=== PATIENT | female | born 1990 | race Caucasian/White ===

== ENCOUNTER 2016-08-20 13:31 | Emergency (ER) | payer OTHER ==
[2016-08-20 13:36] VITALS: TEMP 97.6
[2016-08-20] MEDS ORDERED: ACETAMINOPHEN TAB 500 MG TAB PO STA (13:43)
[2016-08-20] MEDS ORDERED: SODIUM CHLORIDE 0.9% 1,000 ML IV STA (13:43)
--- NOTE | 2016-08-20 13:45 | ED ---
Abdominal Pain HPI - General Chief Complaint: Abdominal Pain Stated Complaint: Poss / Abd Pain Time Seen by Provider: 08/20/16 13:37 Source: patient, RN notes reviewed Mode of arrival: ambulatory Limitations: no limitations - History of Present Illness Initial Comments: 26-year-old female presents to the emergency department with a chief complaint of concern for . Patient states that she has an IUD. Patient states that she took a positive test at home so she was concerned. Patient does not know how far along she possibly has. Patient states she has had some mild abdominal cramping. Patient denies any fever chills with this. Patient is admitted we'll go to her nose. Patient was concerned due to the continued abdominal pain and a test so she thought that she should be evaluated. Patient denies any recent fever, chills, shortness of breath, chest pain, back pain, nausea vomiting, numbness or tingling, dysuria or hematuria, constipation or diarrhea, headaches or visual changes, or any other current symptoms. - Related Data Home Medications Medication Instructions Recorded Confirmed Ascorbic Acid [Vitamin C] 500 mg PO DAILY 08/20/16 08/20/16 Cholecalciferol [Vitamin D3] 1,000 unit PO DAILY 08/20/16 08/20/16 Cranberry Fruit Concentrate 450 mg PO DAILY 08/20/16 08/20/16 [Cranberry] Cyanocobalamin (Vitamin B-12) 1,000 mcg PO DAILY 08/20/16 08/20/16 [Vitamin B-12] Previous Rx's Medication Instructions Recorded Pnv with Ca,No.72/Iron/FA 1 each PO DAILY #30 tablet 08/20/16 [ Plus Tablet] Allergies Allergy/AdvReac Type Severity Reaction Status Date / Time No Known Allergies Allergy Verified 08/20/16 13:44 Review of Systems ROS Statement: Those systems with pertinent positive or pertinent negative responses have been documented in the HPI. ROS Other: All systems not noted in ROS Statement are negative. Past Medical History Past Medical History: No Reported History History of Any Multi-Drug Resistant Organisms: None Reported Past Surgical History: Section Past Anesthesia/Blood Transfusion Reactions: No Reported Reaction Past Psychological History: No Psychological Hx Reported Smoking Status: Never smoker Past Alcohol Use History: None Reported Past Drug Use History: None Reported - Past Family History Father Family Medical History: Diabetes Mellitus General Exam Limitations: no limitations General appearance: alert, in no apparent distress Head exam: Present: atraumatic, normocephalic, normal inspection Eye exam: Present: normal appearance, PERRL, EOMI. Absent: scleral icterus, conjunctival injection, periorbital swelling ENT exam: Present: normal exam, mucous membranes moist Neck exam: Present: normal inspection. Absent: tenderness, meningismus, lymphadenopathy Respiratory exam: Present: normal lung sounds bilaterally. Absent: respiratory distress, wheezes, rales, rhonchi, stridor Cardiovascular Exam: Present: regular rate, normal rhythm, normal heart sounds. Absent: systolic murmur, diastolic murmur, rubs, gallop, clicks GI/Abdominal exam: Present: soft, normal bowel sounds. Absent: distended, tenderness, guarding, rebound, rigid External exam: Present: normal external exam Speculum exam: Present: normal speculum exam By manual exam: Present: normal by manual exam Neurological exam: Present: alert, oriented X3 Psychiatric exam: Present: normal affect, normal mood Skin exam: Present: warm, dry, intact, normal color. Absent: rash Course Vital Signs 08/20/16 08/20/16 13:33 15:21 Temperature 97.6 F Pulse Rate 94 93 Respiratory 18 16 Rate Blood Pressure 129/62 121/51 O2 Sat by Pulse 97 100 Oximetry Medical Decision Making - Medical Decision Making 26-year-old female presents emergency Department chief complaint of abdominal pain with concern for . This time patient's ultrasound does show a 9 week . There is concern for possible subchorionic bleed. At this time patient is O+. Patient's pelvic exam does not show an IUP D either just the ultrasound. This time we discussed discharge and follow-up with [facility]. We discussed return parameters and all patient's questions. She stated that she understood and is in agreement with plan. Patient will be discharged. - Lab Data Result diagrams: 08/20/16 13:50 08/20/16 13:50 Lab Results 08/20/16 08/20/16 08/20/16 Range/Units 13:45 13:45 13:50 WBC (3.8-10.6) k/uL RBC (3.80-5.40) m/uL Hgb (11.4-16.0) gm/dL Hct (34.0-46.0) % MCV (80.0-100.0) fL MCH (25.0-35.0) pg MCHC (31.0-37.0) g/dL RDW (11.5-15.5) % Plt Count (150-450) k/uL Neutrophils % % Lymphocytes % % Monocytes % % Eosinophils % % Basophils % % Neutrophils # (1.3-7.7) k/uL Lymphocytes # (1.0-4.8) k/uL Monocytes # (0-1.0) k/uL Eosinophils # (0-0.7) k/uL Basophils # (0-0.2) k/uL Sodium (137-145) mmol/L Potassium (3.5-5.1) mmol/L Chloride (98-107) mmol/L Carbon Dioxide (22-30) mmol/L Anion Gap mmol/L BUN (7-17) mg/dL Creatinine (0.52-1.04) mg/dL Est GFR (MDRD) Af Amer (>60 ml/min/1.73 sqM) Est GFR (MDRD) Non-Af (>60 ml/min/1.73 sqM) Glucose (74-99) mg/dL Calcium (8.4-10.2) mg/dL Total Bilirubin (0.2-1.3) mg/dL AST (14-36) U/L ALT (9-52) U/L Alkaline Phosphatase (38-126) U/L Total Protein (6.3-8.2) g/dL Albumin (3.5-5.0) g/dL HCG, Quant mIU/mL Urine Color Yellow Urine Appearance Cloudy H (Clear) Urine pH 7.0 (5.0-8.0) Ur Specific Avenue 1.014 (1.001-1.035) Urine Protein Negative (Negative) Urine Glucose (UA) Negative (Negative) Urine Ketones Negative (Negative) Urine Blood Negative (Negative) Urine Nitrite Negative (Negative) Urine Bilirubin Negative (Negative) Urine Urobilinogen <2.0 (<2.0) mg/dL Ur Leukocyte Esterase Negative (Negative) Urine RBC 1 (0-5) /hpf Urine WBC 2 (0-5) /hpf Ur Squamous Epith Cells 9 H (0-4) /hpf Amorphous Sediment Moderate H (None) /hpf Urine Bacteria Rare H (None) /hpf Urine Mucus Rare H (None) /hpf Urine HCG, Qual Detected (Not Detectd) Blood Type O Positive Blood Type Recheck No 08/20/16 08/20/16 Range/Units 13:50 13:50 WBC 8.6 (3.8-10.6) k/uL RBC 4.32 (3.80-5.40) m/uL Hgb 12.7 (11.4-16.0) gm/dL Hct 37.0 (34.0-46.0) % MCV 85.7 (80.0-100.0) fL MCH 29.4 (25.0-35.0) pg MCHC 34.3 (31.0-37.0) g/dL RDW 12.8 (11.5-15.5) % Plt Count 249 (150-450) k/uL Neutrophils % 68 % Lymphocytes % 25 % Monocytes % 4 % Eosinophils % 1 % Basophils % 0 % Neutrophils # 5.8 (1.3-7.7) k/uL Lymphocytes # 2.1 (1.0-4.8) k/uL Monocytes # 0.3 (0-1.0) k/uL Eosinophils # 0.0 (0-0.7) k/uL Basophils # 0.0 (0-0.2) k/uL Sodium 137 (137-145) mmol/L Potassium 4.0 (3.5-5.1) mmol/L Chloride 103 (98-107) mmol/L Carbon Dioxide 24 (22-30) mmol/L Anion Gap 10 mmol/L BUN 12 (7-17) mg/dL Creatinine 0.47 L (0.52-1.04) mg/dL Est GFR (MDRD) Af Amer >60 (>60 ml/min/1.73 sqM) Est GFR (MDRD) Non-Af >60 (>60 ml/min/1.73 sqM) Glucose 97 (74-99) mg/dL Calcium 9.3 (8.4-10.2) mg/dL Total Bilirubin 0.5 (0.2-1.3) mg/dL AST 19 (14-36) U/L ALT 23 (9-52) U/L Alkaline Phosphatase 74 (38-126) U/L Total Protein 7.2 (6.3-8.2) g/dL Albumin 4.1 (3.5-5.0) g/dL HCG, Quant 16485.0 mIU/mL Urine Color Urine Appearance (Clear) Urine pH (5.0-8.0) Ur Specific Avenue (1.001-1.035) Urine Protein (Negative) Urine Glucose (UA) (Negative) Urine Ketones (Negative) Urine Blood (Negative) Urine Nitrite (Negative) Urine Bilirubin (Negative) Urine Urobilinogen (<2.0) mg/dL Ur Leukocyte Esterase (Negative) Urine RBC (0-5) /hpf Urine WBC (0-5) /hpf Ur Squamous Epith Cells (0-4) /hpf Amorphous Sediment (None) /hpf Urine Bacteria (None) /hpf Urine Mucus (None) /hpf Urine HCG, Qual (Not Detectd) Blood Type Blood Type Recheck Disposition Clinical Impression: Disposition: HOME SELF-CARE Condition: Stable Instructions: (ED) Additional Instructions: Please use medication as discussed. Please follow up with family doctor if symptoms have not improved over the next two days. Please return to the emergency room if your symptoms increase or worsen or for any other concerns. Prescriptions: Pnv with Ca,No.72/Iron/FA [ Plus Tablet] 1 each PO DAILY #30 tablet Referrals: Anu Hooks DO [Primary Care Provider] - 1-2 days Time of Disposition: 15:38
[2016-08-20 14:16] LABS: Basophils % (A) 0 %; CH 29.9; CHCM 34.9; Eosinophils % (A) 1 %; HGB 12.7 gm/dL (11.4-16.0); Luc # (Auto) 0.18; Luc % (Auto) 2; Lymphocytes # (A) 2.1 k/uL (1.0-4.8); Lymphocytes % (A) 25 %; MCH 29.4 pg (25.0-35.0); MCHC 34.3 g/dL (31.0-37.0); MCV 85.7 fL (80.0-100.0); Mean Platelet Volume 6.8; Monocytes # (A) 0.3 k/uL (0-1.0); Monocytes % (A) 4 %; Neutrophils # (A) 5.8 k/uL (1.3-7.7); Neutrophils % (A) 68 %; RBC 4.32 m/uL (3.80-5.40); RDW 12.8 % (11.5-15.5); WBC 8.6 k/uL (3.8-10.6); WBC (Perox) 8.94
[2016-08-20 14:16] LABS: Amorphous Sediment,Urine Moderate /hpf; Appearance,Urine Cloudy (Clear); Bacteria,Urine Rare /hpf; Bilirubin,Urine Negative (Negative); Glucose,Urine (UA) Negative (Negative); Ketones,Urine Negative (Negative); Leukocyte Esterase,Urine Negative (Negative); Mucus,Urine Rare /hpf; Nitrite,Urine Negative (Negative); Particle Count 9168; Protein,Urine Negative (Negative); RBC,Urine 1 /hpf (0-5); Specific Gravity,Urine 1.014 (1.001-1.035); Squamous Epithelial Cell,Urine 9 /hpf (0-4); UA Billing (MACRO vs. MICRO) MICRO; Urobilinogen,Urine <2.0 mg/dL (<2.0); WBC,Urine 2 /hpf (0-5)
[2016-08-20 14:25] LABS: ALT 23 U/L (9-52); AST 19 U/L (14-36); Alkaline Phosphatase 74 U/L (38-126); Anion Gap 10 mmol/L; Blood Urea Nitrogen 12 mg/dL (7-17); Calcium 9.3 mg/dL (8.4-10.2); Carbon Dioxide 24 mmol/L (22-30); Chloride 103 mmol/L (98-107); Glucose 97 mg/dL (74-99); Non-African American GFR(MDRD) >60 (>60 ml/min/1.73 sqM); Sodium 137 mmol/L (137-145); Total Bilirubin 0.5 mg/dL (0.2-1.3); Total Protein 7.2 g/dL (6.3-8.2)
--- NOTE | 2016-08-20 15:10 | US ---
EXAMINATION TYPE: US OB <= 14 wk fetus DATE OF EXAM: 08/20/2016 2:54 PM COMPARISON: NONE CLINICAL HISTORY: 26-year-old female Pain. spotting with Date of LMP: unknown Beta HcG (if available): not available EXAM PERFORMED: Multiple transabdominal sonographic images of the pelvis were obtained. FINDINGS: EXAM MEASUREMENTS: GESTATIONAL AGE / DATING Physician Established: not established Dates by LMP: unknown Dates by First Scan: this is first scan Dates by Current Scan for: (9 weeks/3 days) EDC: 03/22/2017 MATERNAL ANATOMY Uterus: 14.6 x 5.6 x 11.1 cm Right Ovary: 3.9 x 2.5 x 2.9cm Left Ovary: 4.0 x 1.4 x 2.4 Post CDS / Adnexa: wnl Presence of free fluid: none Presence of subchorionic bleed: Along the left inferior margin of the gestational sac measuring 4.2 x 0.6 x 2.6 cm GESTATION / SURVEY CRL: 2.7cm (9 weeks/3 days) Yolk Sac (normal less than 6mm): 4.6 mm Heart Rate: 169 bpm Rhythm: Normal IUP: Viable IUP IMPRESSION: 1. Single live intrauterine with gestational age of 9 weeks 3 days by crown-rump length. 2. Moderate-sized left-sided and inferior perigestational bleed. Follow-up can be performed.
[2016-08-20 15:50] VITALS: BP 125/71; PULSE 85; RESP 18
== END 2016-08-20 15:50 | disposition home or self-care (01) ==
LOC: EC 13:31
DX: O26.891 Other specified pregnancy related conditions, first trimester (principal); R10.9 Unspecified abdominal pain; Z3A.09 9 weeks gestation of pregnancy
CPT/HCPCS: 36415; 76801; 80053; 81001; 81025; 84702; 85025; 86900; 86901; 87077; 87086; 87186; 96360; 99284

== ENCOUNTER → 2017-08-24 | Outpatient (CLI) | payer OTHER ==
[2017-08-24 16:09] LABS: Basophils % (A) 0 %; Eosinophils # (A) 0.2 k/uL (0-0.7); Eosinophils % (A) 2 %; HCT 36.3 % (34.0-46.0); HGB 12.2 gm/dL (11.4-16.0); Lymphocytes # (A) 3.5 k/uL (1.0-4.8); Lymphocytes % (A) 37 %; MCH 27.9 pg (25.0-35.0); MCHC 33.7 g/dL (31.0-37.0); MCV 82.8 fL (80.0-100.0); Mean Platelet Volume 7.8; Monocytes # (A) 0.5 k/uL (0-1.0); Monocytes % (A) 5 %; Neutrophils # (A) 5.1 k/uL (1.3-7.7); Neutrophils % (A) 55 %; Platelet Count 277 k/uL (150-450); RBC 4.38 m/uL (3.80-5.40); RDW 14.2 % (11.5-15.5); WBC 9.4 k/uL (3.8-10.6)
== END | disposition home or self-care (01) ==
LOC: LABPAT 15:40
PROVIDERS: ATTEND Obstetrics & Gynecology Obstetrics
DX: Z01.812 Encounter for preprocedural laboratory examination (principal); Z64.0 Problems related to unwanted pregnancy
CPT/HCPCS: 36415; 85025

== ENCOUNTER 2017-08-29 08:08 | Day surgery (SDC) | payer OTHER ==
--- NOTE | 2017-08-17 11:30 | P.HPOB ---
History of Present Illness H&P Date: 08/17/17 Chief Complaint: family status complete This is a 27yo that present with request for tubal ligation. she is done with childbearing. she is s/p on 06/13. 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, gestational diabetes - no medications History of Any Multi-Drug Resistant Organisms: None Reported Past Surgical History: Section Past Anesthesia/Blood Transfusion Reactions: No Reported Reaction Past Psychological History: No Psychological Hx Reported Smoking Status: Former smoker Past Alcohol Use History: None Reported Past Drug Use History: None Reported - Past Family History Father Family Medical History: Diabetes Mellitus Medications and Allergies Home Medications Medication Instructions Recorded Confirmed Type Pnv,Calcium 72/Iron/Folic Acid 1 each PO DAILY #30 tablet 08/20/16 06/13/17 Rx [ Plus Tablet] Ibuprofen 600 mg PO Q6H 06/14/17 06/14/17 History Allergies Allergy/AdvReac Type Severity Reaction Status Date / Time No Known Allergies Allergy Verified 06/13/17 06:15 Exam Osteopathic Statement: *. No significant issues noted on an osteopathic structural exam other than those noted in the History and Physical/Consult. - OBG Physical Exam Abdomen: bowel sounds normal, no diffuse tenderness, no mass Vulva: both: normal Vagina: normal pink rugae, no masses or lesions Uterus: normal size Adnexa: both: normal Assessment and Plan (1) Family planning Status: Acute Code(s): Z30.09 - ENCOUNTER FOR OTH GENERAL CNSL AND ADVICE ON CONTRACEPTION SNOMED Code(s): 217082579 Plan: plan LTL wth falope rings. procedure reviewed and questiosn answered. risk reviewed including but not limited to infection bleeding damage to bladder bowel or ureteric injury. failure rates of the tubal ligation discussed and she states understanding. Time with Patient: Less than 30
[2017-08-26 12:12] VITALS: BMI 25.4
[~2017-08-29 08:08] MED LIST: ACETAMINOPHEN IV (For NPO) 1,000 MG in EMPTY BAG 1 BAG IVPB ONE; DEXAMETHASONE SOD PHOSPHATE 10 MG/ML 1 ML VIAL IV ONE; LACTATED RINGERS 1,000 ML IV SCH; LIDOCAINE 1% 20 ML VIAL (10MG/ML) FOR IV START INTRADERMA PRN; MORPHINE SULFATE 2 MG/ML SYRINGE IV PRN; ONDANSETRON 4 MG/2 ML VIAL IVP ONE; Pre Op ABX Message 1 EACH MISC MISCELLANE ONE; SCOPOLAMINE 1.5MG/72HR PATCH TRANSDERM ONE
[2017-08-29] MEDS ORDERED: ACETAMINOPHEN IV (For NPO) 1,000 MG/100 ML VIAL IVPB ONE (09:12)
[2017-08-29] MEDS ORDERED: LACTATED RINGERS 1,000 ML IV ONE ×3 (09:12→11:58)
[2017-08-29] MEDS ORDERED: fentaNYL (PF) 50 MCG/ML 2 ML AMP ONE (10:09)
[2017-08-29] MEDS ORDERED: PROPOFOL 10 MG/ML 20 ML VIAL IV ONE (10:09)
[2017-08-29] MEDS ORDERED: LIDOCAINE 1% INJ 10MG/ML (20 ML MDV) ONE (10:09)
[2017-08-29] MEDS ORDERED: SUCCINYLCHOLINE CHLORIDE 100 MG/5 ML SYR IV ONE (10:09)
[2017-08-29] MEDS ORDERED: BUPIVACAINE (PF) 0.25% 30 ML VIAL SQ ONE ×2 (10:28→10:36)
--- NOTE | 2017-08-29 10:48 | P.OP ---
Date of Procedure: 08/29/17 Preoperative Diagnosis: Undesired fertility, family status complete Postoperative Diagnosis: Same Procedure(s) Performed: Laboratory tubal ligation with Falope-Rings Anesthesia: PÉREZ Surgeon: Neena Mckenna Estimated Blood Loss (ml): 5 IV fluids (ml): 600 Urine output (ml): 75 Pathology: none sent Condition: stable Disposition: PACU Indications for Procedure: Patient request, family status complete Operative Findings: Normal globular uterus tubes and ovaries were appreciated Description of Procedure: Patient was seen in the preoperative area and informed consent was obtained. His were reviewed in detail including but not limited to infection, bleeding, damage to bladder, bowel, ureteric injury. Patient stated understanding and informed consent was obtained. Assessment and operating room where general anesthesia was obtained without difficulty by the anesthesia department. She was prepped and draped in the normal sterile fashion in dorsal lithotomy position. A red rubber catheter was then used to drain the bladder of clear yellow urine. Weighted speculum was placed in the posterior vaginal vault the anterior lip of the cervix was visualized and grasped with a single-tooth tenaculum. An acorn uterine manipulator was then advanced into the cervix as a means to miniplate uterus during the surgery. Attention was then turned to the patient's abdomen where in the umbilical fold a small skin incision was made. Through this the various needles placed. Once the Veress needle was deemed to be in the appropriate position with the drop in CO2 pressure with insufflation of CO2 gas CO2 insufflation was allowed to occur. Approximately 3 L of gas were used to obtain pneumoperitoneum. At this time 5 mm trocar and sleeve with the laparoscope in place to the skin incision for the pneumoperitoneum under direct visualization. At this point the above-noted findings visualized. An additional port sites in the right lower quadrant was placed 5 millimeter port placed under direct visualization. The patient's left fallopian tube was visualized and grasped with the Falope ring applicator operated according to gold beater's instructions a good knuckle of tube was noted after the ring placement was completed. This was then repeated on the opposite side. Hemostasis was appreciated in an Allis was removed from the patient's abdomen and incisions were closed with 4-0 Vicryl in a subcuticular fashion Steri- Strips and sterile dressings were applied. Quarter percent plain lidocaine was placed in these incisions prior to closure. Attention to the patient's vaginal vault a single-tooth tenaculum and acorn uterine manipulator were removed from the patient's cervix and hemostasis was appreciated. Next All counts were correct 2 patient tolerated procedure well and was taken to recovery awake in stable condition
[2017-08-29 10:56] VITALS: TEMP 98.2
[2017-08-29] MEDS ORDERED: fentaNYL (PF) 50 MCG/ML 2 ML AMP IVP ONE (11:18)
[2017-08-29 11:37] VITALS: RESP 18
[2017-08-29 12:31] VITALS: BP 118/79; PULSE 87
== END 2017-08-29 12:52 | disposition home or self-care (01) ==
LOC: OR 08:08
PROVIDERS: ATTEND Obstetrics & Gynecology Obstetrics
DX: Z30.2 Encounter for sterilization (principal); F17.200 Nicotine dependence, unspecified, uncomplicated; Z79.1 Long term (current) use of non-steroidal anti-inflammatories (NSAID); Z83.3 Family history of diabetes mellitus
CPT/HCPCS: 81025; 58671; J1100; J2405; J2001; J3010; J0131; J0330; J2704

== ENCOUNTER → 2019-03-23 | Outpatient (CLI) | payer OTHER ==
--- NOTE | 2019-03-24 10:03 | MR ---
EXAMINATION TYPE: MR brain wo con DATE OF EXAM: 03/23/2019 7:42 PM COMPARISON: NONE HISTORY: Blurred vision, lightheadedness with near syncope Multiplanar and multispin-echo imaging of the brain was performed . The ventricles, basal cisterns and sulci overlying the cerebral convexities are within normal limits. There is no evidence for midline shift or mass effect. Acute intracranial hemorrhage or extra-axial collection is not evident. There are a few small foci of increased signal within the deep white matter of both cerebral hemisphe res and within the posterior zuleta radiata which are nonspecific. Largest lesion bilaterally measure s approximately 3.5 mm. Findings are nonspecific and may reflect demyelination. Sequela of chronic mi graine headaches, vasculitis, sequela of Lyme's disease to name a few. No acute edema is identified. The paranasal sinuses and mastoid air cells are well-aerated. IMPRESSION: Nonspecific white matter changes as noted above. Correlate clinically.
== END ==
LOC: RADMRIMAIN 18:58
PROVIDERS: ATTEND Physician Assistant Medical
DX: R90.89 Other abnormal findings on diagnostic imaging of central nervous system (principal)
CPT/HCPCS: 70551